=== PATIENT | female | born 1985 | race Caucasian/White ===

== ENCOUNTER 2022-05-01 00:40 | Emergency (ER) | payer OTHER ==
[2022-05-01 01:19] VITALS: BP 100/67; PULSE 88; TEMP 97.7; BMI 28.8
== END 2022-05-01 01:34 | disposition left against medical advice (07) ==
LOC: JER 00:40
DX: T76.21XA Adult sexual abuse, suspected, initial encounter (principal); Y07.03 Male partner, perpetrator of maltreatment and neglect
CPT/HCPCS: 99281-25